=== PATIENT | female | born 1965 | race Caucasian/White ===

== ENCOUNTER → 2016-10-08 | Outpatient (REF) | payer MEDICARE, MEDICAID ==
[2016-10-12 00:10] LABS: TOPIRAMATE LEVEL 16.9 ug/mL (2.0-25.0)
== END ==
LOC: M LABNEURO 11:39
PROVIDERS: ATTEND Physician Assistant Medical
DX: R56.9 Unspecified convulsions (principal)

== ENCOUNTER 2016-10-14 20:22 | Emergency (ER) | payer OTHER, MEDICARE, MEDICAID ==
[~2016-10-14] VITALS: Ht 160 cm; Wt 99.8 kg
[2016-10-14] MEDS ORDERED: [UNRECOGNIZED DRUG - CODE] (20:38)
[2016-10-14] MEDS ORDERED: [UNRECOGNIZED DRUG - CODE] (20:38)
[2016-10-14] MEDS ORDERED: ZOMI5TAB4 PO (20:38)
[2016-10-14] MEDS ORDERED: VITA200038 PO (20:38)
[2016-10-14] MEDS ORDERED: [UNRECOGNIZED DRUG - OTHER] (20:38)
[2016-10-14] MEDS ORDERED: MOME50SP (20:38)
[2016-10-14] MEDS ORDERED: HYDR-3716 PO (20:38)
[2016-10-14] MEDS ORDERED: CYMB60CA3 PO (20:38)
[2016-10-14] MEDS ORDERED: PROA1AER INH (20:38)
[2016-10-14] MEDS ORDERED: TOPI200T4 PO (20:38)
[2016-10-14] MEDS ORDERED: BACL10TA2 PO (20:38)
[2016-10-14] MEDS ORDERED: IRON65TA PO (20:38)
[2016-10-14] MEDS ORDERED: COLA100C PO (20:38)
[2016-10-14] MEDS ORDERED: MONT10TA2 PO (20:38)
--- NOTE | 2016-10-15 00:50 | REPUSA ---
CLINICAL HISTORY: Neck pain. TECHNIQUE: Multiple axial images were obtained through the cervical spine. Images were also reconstru cted in coronal and sagittal planes. The study was performed without IV contrast. COMMENTS: Anterior cervical fusion from C4-T1 levels. Unremarkable metallic hardware. There is no fracture or spondylolisthesis visualized. The paraspinal soft tissues are unremarkable. T here are no lytic or blastic lesions. Straightening of cervical lordosis is seen, suggesting muscular spasm. There is evidence of minimal m ultilevel disk disease, demonstrated by osteophytosis and endplate sclerosis. Moderate multilevel narrowing of the spinal canal and neural foramina from C3-T1 levels secondary to chronic disc disease. IMPRESSION: 1. No fracture or spondylolisthesis. 2. Straightening of cervical lordosis is seen, suggesting muscular spasm. 3. Multilevel spondylosis. Thank you for your kind referral of this patient.
--- NOTE | 2016-10-15 00:50 | REPUSA ---
CLINICAL HISTORY: Back pain. TECHNIQUE: Multiple axial images were obtained through the L1-L2, L2-L3, L3-L4, L4-L5 and L5-S1 inter spaces. Images were also reconstructed in coronal and sagittal planes. COMMENTS: There is no fracture visualized. The paraspinal soft tissues are unremarkable. There are no lytic or blastic lesions. Straightening of lumbar lordosis is seen, suggesting muscular spasm. There is evidence of multilevel disk disease, demonstrated by osteophytosis ad endplate sclerosis. Mild degenerative levoscoliosis apex at L3. Changes from prior posterior decompression and fusion at L4/S1 levels. Grade 2 anterolisthesis of L5 on S1. Moderate multilevel degenerative disc disease. Secondary moderate multilevel spinal canal narrowing from L2-S1 levels. Multilevel moderate to severe bilateral neural foramina narrowing most prominent at L5-S1 level. IMPRESSION: 1. No fracture. 2. Straightening of lumbar lordosis is seen, suggesting muscular spasm. 3. Spondylosis. Multilevel degenerative disc disease. Thank you for your kind referral of this patient.
[2016-10-15 01:18] VITALS: BP 166/89
== END 2016-10-15 01:19 | disposition home or self-care (01) ==
LOC: M ED 23:33
DX: M54.2 Cervicalgia (principal); M54.5 Low back pain

== ENCOUNTER → 2017-01-03 | Outpatient (REF) | payer OTHER, MEDICARE, MEDICAID ==
[~2017-01-03] MED LIST: BACL10TA2 PO; COLA100C3 PO; CYMB60CA3 PO; HYDR-3716 PO; IRON65TA PO; MOME50SP; MONT10TA2 PO; PROA1AER INH; TOPI200T4 PO; VITA200038 PO; ZOMI5TAB4 PO; [UNRECOGNIZED DRUG - CODE]; [UNRECOGNIZED DRUG - CODE]; [UNRECOGNIZED DRUG - OTHER]
[2017-01-03 19:36] LABS: BLOOD UREA NITROGEN 12 MG/DL (7-18); CREATININE FOR GFR 0.93 MG/DL (0.55-1.02); GLOMERULAR FILTRATION RATE > 60.0 (>51)
== END ==
LOC: M LABNEURO 17:28 → M LABDRAW1 17:28
PROVIDERS: ATTEND Orthopaedic Surgery Orthopaedic Surgery of the Spine
DX: M54.5 Low back pain (principal); M54.89 Other dorsalgia

== ENCOUNTER → 2018-04-10 | Outpatient (REF) | payer OTHER, MEDICARE, MEDICAID ==
[2018-04-14 14:17] LABS: TOPIRAMATE LEVEL 11.9 ug/mL (2.0-25.0)
== END ==
LOC: M LABNEURO 08:47
DX: R56.9 Unspecified convulsions (principal); G43.909 Migraine, unspecified, not intractable, without status migrainosus

== ENCOUNTER 2018-11-03 08:17 | Day surgery (SDC) | payer MEDICARE, MEDICAID ==
[~2018-11-03] VITALS: Ht 157.5 cm; Wt 91.4 kg
[~2018-11-03 08:17] MED LIST changes: +ACET1TAB55 PO; +ALLE180T33 PO; +BIOT1TAB PO; +CO Q10CA PO; -COLA100C3 PO; +COLA100C5 PO; +FLUTISP; +LISI-538 PO; +METF500T13 PO; +NS 1,000 ML IV ONE; -PROA1AER INH; +PROAAER10 INH; +SIMV10TA2 PO; -TOPI200T4 PO; +TOPI200T7 PO; +VITA10006 PO; +ZINC1TAB2 PO; +ZOMI5TAB12 PO; -ZOMI5TAB4 PO; -[UNRECOGNIZED DRUG - CODE]; +[UNRECOGNIZED DRUG - CODE] PO
[2018-11-03] MEDS ORDERED: PROPOFOL 200 MG/20 ML VIAL As Ordered ONE ×2 (09:34→09:37)
--- NOTE | 2018-11-03 10:15 | ROOR ---
Patient Name: Carole Carmona Procedure Date: 11/03/2018 9:50 AM Date of : 1965 Age: 53 Room: [facility] Gender: Female Note Status: Finalized Procedure: Total Colonoscopy to Cecum Indications: Screening for colorectal malignant neoplasm Providers: Chito Saavedra MD Referring MD: CHRISTINA JUNG NP Requesting Provider: Medicines: Monitored Anesthesia Care Complications: No immediate complications. Procedure: Pre-Anesthesia Assessment: - The heart rate, respiratory rate, oxygen saturations, blood pressure, adequacy of pulmonary ventilation, and response to care were monitored throughout the procedure. The Colonoscope was introduced through the anus and advanced to the cecum, identified by appendiceal orifice and ileocecal valve. The colonoscopy was performed without difficulty. The patient tolerated the procedure well. The quality of the bowel preparation was excellent. Findings: The perianal and digital rectal examinations were normal. Non-bleeding internal hemorrhoids were found during retroflexion. The hemorrhoids were small and Grade I (internal hemorrhoids that do not prolapse). Multiple small and large-mouthed diverticula were found in the recto-sigmoid colon, sigmoid colon and descending colon. The exam was otherwise without abnormality on direct and retroflexion views. Impression: - Non-bleeding internal hemorrhoids. - Diverticulosis in the recto-sigmoid colon, in the sigmoid colon and in the descending colon. - The examination was otherwise normal on direct and retroflexion views. - No specimens collected. - The exam was otherwise normal to the cecum. Recommendation: - Patient has a contact number available for emergencies. The signs and symptoms of potential delayed complications were discussed with the patient. Return to normal activities tomorrow. Written discharge instructions were provided to the patient. - High fiber diet. - Discharge patient to home. - Return to referring physician. - Repeat colonoscopy in 10 years for screening purposes. - Return to referring physician. - The findings and recommendations were discussed with the patient's family. Chito Saavedra MD Chito Saavedra MD 11/03/2018 10:14:35 AM Electronically signed by Chito Saavedra MD Number of Addenda: 0 Note Initiated On: 11/03/2018 9:50 AM Estimated Blood Loss: Estimated blood loss: none.
[2018-11-03 10:30] VITALS: BP 159/80
== END 2018-11-03 10:41 | disposition home or self-care (01) ==
LOC: M OPP 08:17
PROVIDERS: ATTEND Internal Medicine Gastroenterology
DX: K64.0 First degree hemorrhoids (principal); K57.30 Diverticulosis of large intestine without perforation or abscess without bleeding; Z12.11 Encounter for screening for malignant neoplasm of colon